=== PATIENT | female | born 1980 | race African-American/Black ===

== ENCOUNTER 2019-07-08 09:12 | Emergency (ER) | payer OTHER ==
[~2019-07-08] VITALS: Ht 180.3 cm; Wt 78.6 kg
[~2019-07-08 09:12] MED LIST: IBUP800T48 PO; METH750T93 PO
[2019-07-08 09:15] VITALS: Ht 180.3 cm; Wt 78.6 kg
[2019-07-08 11:33] VITALS: BP 138/91; PULSE 74; RESP 22
== END 2019-07-08 11:35 | disposition home or self-care (01) ==
LOC: E/R 09:12
DX: S16.1XXA Strain of muscle, fascia and tendon at neck level, initial encounter (principal); S39.012A Strain of muscle, fascia and tendon of lower back, initial encounter; S20.212A Contusion of left front wall of thorax, initial encounter; J45.909 Unspecified asthma, uncomplicated; V49.40XA Driver injured in collision with unspecified motor vehicles in traffic accident, initial encounter
CPT/HCPCS: 71045; 72125; 72131; 81025